=== PATIENT | male | born 1945 | race Caucasian/White ===

== ENCOUNTER 2023-04-09 22:11 | Inpatient (IN) ==
[2023-04-10] MEDS ORDERED: Ondansetron 4 mg VIAL 2 MG/ML 2 ml VIAL IV ONE ×3 (01:45→09:31)
[2023-04-10 02:07] LABS: ABS Basophils 0.1 10^3/uL (0.0-0.1); ABS Lymphocytes 0.6 10^3/uL (1.0-4.8); ABS Monocytes 0.7 10^3/uL (0.0-1.1); ABS Nucleated RBC 0.01 10^3/ul; Eosinophil % 0.1 %; Hemoglobin 16.8 g/dL (13.2-16.3); Lymphocyte % 4.3 %; Mean Corpuscular Hemoglobin 32.3 pg (27-33); Mean Corpuscular Hgb Conc 34.9 g/dL (31-36); Mean Corpuscular Volume 92.4 fL (80-97); Mean Platelet Volume 8.6 fL (7.5-11.2); Nucleated Red Blood Cells % 0.1 /100 WBC (0.0-0.4); Platelet Count 146 10^3/uL (150-450); Red Cell Distribution Width 14.6 % (12-17); White Blood Count 14.4 10^3/uL (3.6-10.2)
[2023-04-10 02:22] LABS: Albumin 4.4 g/dL (3.2-5.2); Albumin/Globulin Ratio 1.5 (1-3); Creatinine, Serum 0.99 mg/dL (0.67-1.17); Potassium 3.7 mmol/L (3.5-5.0); Total Bilirubin 1.4 mg/dL (0.2-1.0); Total Protein 7.4 g/dL (6.4-8.9); eGFR CKD-EPI 79.4 (>60)
[2023-04-10] MEDS ORDERED: Iohexol 350 (CONTRAST) 500 ML MDV IV ONE (04:09)
[2023-04-10] MEDS ORDERED: Morphine 4 MG/ML VIAL (1 ml) IV ONE (06:17)
[2023-04-10 06:19] LABS: Urine Appearance Clear; Urine Bilirubin Negative (Negative); Urine Blood Negative (Negative); Urine Color Yellow; Urine Glucose Negative (Negative); Urine Ketones 1+ (Negative); Urine Nitrite Negative (Negative); Urine Protein 1+(30 mg/dL) (Negative); Urine Specific Gravity 1.024 (1.002-1.030); Urine Urobilinogen Negative (Negative)
[2023-04-10 06:23] LABS: Urine Bacteria Absent (Absent); Urine Red Blood Cell 1+(3-5/hpf) (Absent); Urine White Blood Cell Trace(0-5/hpf) (Absent)
[2023-04-10] MEDS ORDERED: Lactated Ringers 1000 ml BAG 1,000 ML IV ONE (09:31)
[2023-04-10 11:26] LABS: C Reactive Protein 2.2 mg/L (<8.01)
[2023-04-10] MEDS ORDERED: Morphine 2 MG/ML SYRINGE IV PRN ×2 (12:14→21:11)
[2023-04-10] MEDS ORDERED: metroNIDAZOLE IV 500 MG/100ML 500 MG/100 ML BAG IVPB ONE (12:17)
[2023-04-10] MEDS ORDERED: cefTRIAXone 2 GM ADDV.VIAL 2 GM in NS 0.9% 100 ml BAG 100 ML IV ONE (12:17)
[2023-04-10] MEDS: metroNIDAZOLE IV 500 MG/100ML 500 MG/100 ML BAG IVPB SCH ×2 (12:34→21:19)
[2023-04-10] MEDS: Prochlorperazine 5 mg/ml 2 ml VIAL (10 mg) IV PRN (12:37)
[2023-04-10] MEDS: Heparin 5000 UNITS/ML 1 mL VIAL SUBCUT SCH ×2 (13:49→21:15)
[2023-04-10] MEDS: Ondansetron 4 mg VIAL 2 MG/ML 2 ml VIAL IV PRN ×2 (16:00→21:12)
[2023-04-10] MEDS: Lactated Ringers 1000 ml BAG 1,000 ML IV SCH (18:14)
[2023-04-10] MEDS: CMCS:Ticagrelor 60 mg TAB (NF) PO SCH (21:17)
[2023-04-11] MEDS: Lactated Ringers 1000 ml BAG 1,000 ML IV SCH ×2 (04:50→15:37)
[2023-04-11] MEDS: metroNIDAZOLE IV 500 MG/100ML 500 MG/100 ML BAG IVPB SCH ×3 (04:52→21:38)
[2023-04-11] MEDS: Heparin 5000 UNITS/ML 1 mL VIAL SUBCUT SCH ×3 (05:27→21:37)
[2023-04-11 06:49] LABS: ABS Lymphocytes 0.5 10^3/uL (1.0-4.8); ABS Monocytes 1.1 10^3/uL (0.0-1.1); ABS Neutrophils 17.6 10^3/uL (1.5-7.6); ABS Nucleated RBC 0.02 10^3/ul; Hematocrit 44.3 % (38-53); Hemoglobin 15.6 g/dL (13.2-16.3); Lymphocyte % 2.6 %; Mean Corpuscular Hemoglobin 32.5 pg (27-33); Mean Corpuscular Hgb Conc 35.2 g/dL (31-36); Mean Corpuscular Volume 92.3 fL (80-97); Mean Platelet Volume 9.3 fL (7.5-11.2); Nucleated Red Blood Cells % 0.1 /100 WBC (0.0-0.4); Platelet Count 127 10^3/uL (150-450); Red Cell Distribution Width 15.2 % (12-17); White Blood Count 19.2 10^3/uL (3.6-10.2)
[2023-04-11 07:07] LABS: Albumin 3.7 g/dL (3.2-5.2); Albumin/Globulin Ratio 1.4 (1-3); C Reactive Protein 206.11 mg/L (<8.01); Calcium 9.1 mg/dL (8.6-10.3); Creatinine, Serum 0.91 mg/dL (0.67-1.17); Globulin 2.6 g/dL (2-4); Potassium 3.7 mmol/L (3.5-5.0); Total Bilirubin 2.6 mg/dL (0.2-1.0); Total Protein 6.3 g/dL (6.4-8.9); eGFR CKD-EPI 87.9 (>60)
[2023-04-11] MEDS: Prochlorperazine 5 mg/ml 2 ml VIAL (10 mg) IV PRN (08:23)
[2023-04-11] MEDS: CMCS:Ticagrelor 60 mg TAB (NF) PO SCH (09:54)
[2023-04-11] MEDS: cefTRIAXone 2 gm/50 mL D5W 2 GM/50 ML BAG IV SCH (12:52)
[2023-04-12 06:01] LABS: ABS Eosinophils 0.1 10^3/uL (0.0-0.5); ABS Lymphocytes 0.6 10^3/uL (1.0-4.8); ABS Neutrophils 13.9 10^3/uL (1.5-7.6); ABS Nucleated RBC 0.01 10^3/ul; Eosinophil % 0.3 %; Hematocrit 41.1 % (38-53); Hemoglobin 14.5 g/dL (13.2-16.3); Lymphocyte % 4.1 %; Mean Corpuscular Hemoglobin 31.9 pg (27-33); Mean Corpuscular Hgb Conc 35.3 g/dL (31-36); Mean Corpuscular Volume 90.5 fL (80-97); Mean Platelet Volume 8.4 fL (7.5-11.2); Platelet Count 116 10^3/uL (150-450); Red Blood Count 4.55 10^6/uL (4.06-5.63); Red Cell Distribution Width 14.8 % (12-17); White Blood Count 15.7 10^3/uL (3.6-10.2)
[2023-04-12] MEDS: metroNIDAZOLE IV 500 MG/100ML 500 MG/100 ML BAG IVPB SCH ×3 (06:02→20:28)
[2023-04-12 06:23] LABS: Albumin 3.3 g/dL (3.2-5.2); Albumin/Globulin Ratio 1.3 (1-3); Calcium 8.7 mg/dL (8.6-10.3); Creatinine, Serum 0.9 mg/dL (0.67-1.17); Globulin 2.6 g/dL (2-4); Potassium 3.6 mmol/L (3.5-5.0); Total Bilirubin 1.8 mg/dL (0.2-1.0); Total Protein 5.9 g/dL (6.4-8.9); eGFR CKD-EPI 89.1 (>60)
[2023-04-12] MEDS: Heparin 5000 UNITS/ML 1 mL VIAL SUBCUT SCH ×4 (06:38→22:20)
[2023-04-12] MEDS: cefTRIAXone 2 gm/50 mL D5W 2 GM/50 ML BAG IV SCH (12:27)
[2023-04-12] MEDS: Ondansetron 4 mg VIAL 2 MG/ML 2 ml VIAL IV PRN (16:06)
[2023-04-12] MEDS: Lactated Ringers 1000 ml BAG 1,000 ML IV SCH (20:27)
[2023-04-13] MEDS: metroNIDAZOLE IV 500 MG/100ML 500 MG/100 ML BAG IVPB SCH ×2 (04:45→23:51)
[2023-04-13] MEDS ORDERED: Acetaminophen IV 1 GM/100ML 1,000 MG/100 ML BAG IV ONE ×3 (05:30→14:47)
[2023-04-13 06:02] LABS: ABS Lymphocytes 0.1 10^3/uL (1.0-4.8); ABS Monocytes 0.3 10^3/uL (0.0-1.1); ABS Neutrophils 8.1 10^3/uL (1.5-7.6); Eosinophil % 0.3 %; Hematocrit 40.7 % (38-53); Hemoglobin 14.4 g/dL (13.2-16.3); Lymphocyte % 1.7 %; Mean Corpuscular Hemoglobin 31.9 pg (27-33); Mean Corpuscular Hgb Conc 35.5 g/dL (31-36); Mean Corpuscular Volume 89.7 fL (80-97); Mean Platelet Volume 8.7 fL (7.5-11.2); Platelet Count 117 10^3/uL (150-450); Red Blood Count 4.53 10^6/uL (4.06-5.63); Red Cell Distribution Width 14.9 % (12-17); White Blood Count 8.6 10^3/uL (3.6-10.2)
[2023-04-13 06:21] LABS: Albumin 3.2 g/dL (3.2-5.2); Albumin/Globulin Ratio 1.2 (1-3); C Reactive Protein 175.39 mg/L (<8.01); Calcium 8.5 mg/dL (8.6-10.3); Creatinine, Serum 0.93 mg/dL (0.67-1.17); Globulin 2.6 g/dL (2-4); Potassium 3.2 mmol/L (3.5-5.0); Total Bilirubin 1.6 mg/dL (0.2-1.0); Total Protein 5.8 g/dL (6.4-8.9); eGFR CKD-EPI 85.6 (>60)
[2023-04-13] MEDS ORDERED: Lactated Ringers 1000 ml BAG 1,000 ML IV ONE (06:36)
[2023-04-13] MEDS: Lactated Ringers 1000 ml BAG 1,000 ML IV SCH (08:14)
[2023-04-13] MEDS ORDERED: fentaNYL 100 mcg/2 ml 50 MCG/ML VIAL IV PRN ×2 (09:15→11:05)
[2023-04-13] MEDS ORDERED: HYDROmorphone 1 MG/1 ML SYRINGE IV PRN ×2 (09:15→11:05)
[2023-04-13] MEDS ORDERED: Ondansetron 4 mg VIAL 2 MG/ML 2 ml VIAL IV PRN ×2 (09:15→11:05)
[2023-04-13] MEDS ORDERED: Naloxone 0.4 mg VIAL 0.4 mg/ml 1 ml VIAL IV PRN ×2 (09:15→11:05)
[2023-04-13] MEDS ORDERED: Propofol 10 MG/ML 20 ML BTL ONE (10:30)
[2023-04-13] MEDS ORDERED: Ondansetron 4 mg VIAL 2 MG/ML 2 ml VIAL ONE (10:30)
[2023-04-13] MEDS ORDERED: Rocuronium 50 mg VIAL 10 mg/ml 5 ml VIAL (50 mg) ONE (10:30)
[2023-04-13] MEDS ORDERED: fentaNYL 100 mcg/2 ml 50 MCG/ML VIAL ONE (10:30)
[2023-04-13] MEDS ORDERED: Lidocaine 2% PF 5 ML VIAL ONE (10:30)
[2023-04-13] MEDS ORDERED: Dexamethasone IV 4 MG/ML VIAL 1 ml VIAL ONE (10:30)
[2023-04-13] MEDS ORDERED: Midazolam 2 mg/2 ml VIAL 1 mg/ml 2 ml VIAL (2 mg) ONE (10:31)
[2023-04-13] MEDS ORDERED: ceFAZolin 2 GM PREMIX 2 GM/50 ML BAG ONE (11:56)
[2023-04-13] MEDS ORDERED: Bupivacaine 0.25% EPI 200,000 30 ML SDV ONE (12:15)
[2023-04-13 13:01] LABS: ABS Lymphocytes 0.4 10^3/uL (1.0-4.8); ABS Monocytes 0.5 10^3/uL (0.0-1.1); ABS Neutrophils 12.7 10^3/uL (1.5-7.6); Eosinophil % 0.2 %; Hemoglobin 13.8 g/dL (13.2-16.3); Lymphocyte % 2.6 %; Mean Corpuscular Hemoglobin 32.5 pg (27-33); Mean Corpuscular Hgb Conc 35.3 g/dL (31-36); Mean Corpuscular Volume 92.1 fL (80-97); Mean Platelet Volume 8.7 fL (7.5-11.2); Platelet Count 114 10^3/uL (150-450); Red Blood Count 4.24 10^6/uL (4.06-5.63); Red Cell Distribution Width 14.7 % (12-17); White Blood Count 13.6 10^3/uL (3.6-10.2)
[2023-04-13 13:13] LABS: Albumin 3.1 g/dL (3.2-5.2); Calcium 8.4 mg/dL (8.6-10.3); Creatinine, Serum 0.93 mg/dL (0.67-1.17); Potassium 3.3 mmol/L (3.5-5.0); Total Protein 5.7 g/dL (6.4-8.9); eGFR CKD-EPI 85.6 (>60)
[2023-04-13 13:14] LABS: Albumin/Globulin Ratio 1.2 (1-3); Globulin 2.6 g/dL (2-4); Total Bilirubin 1.2 mg/dL (0.2-1.0)
[2023-04-13 14:16] LABS: High Sensitivity Troponin 1 Hr 2216 pg/mL (<20)
[2023-04-13] MEDS ORDERED: Iohexol 350 (CONTRAST) 500 ML MDV IV ONE ×2 (15:20→16:57)
[2023-04-13] MEDS: KCL 20 MEQ/100 ML IVPREMIX 20 MEQ/100 ML BAG IV SCH ×2 (16:36→21:14)
[2023-04-13] MEDS ORDERED: Magnesium Sulfate 2 gm BAG 2 GM/50 ML BAG IVPB ONE (17:36)
[2023-04-13] MEDS ORDERED: cefTRIAXone 2 gm/50 mL D5W 2 GM/50 ML BAG IV SCH (23:00)
[2023-04-14] MEDS: Lactated Ringers 1000 ml BAG 1,000 ML IV SCH (02:59)
[2023-04-14] MEDS: metroNIDAZOLE IV 500 MG/100ML 500 MG/100 ML BAG IVPB SCH ×2 (06:26→07:33)
[2023-04-14 06:38] LABS: Albumin 2.9 g/dL (3.2-5.2); Albumin/Globulin Ratio 1.2 (1-3); Creatinine, Serum 1.03 mg/dL (0.67-1.17); Globulin 2.5 g/dL (2-4); Magnesium 2.1 mg/dL (1.9-2.7); Potassium 3.6 mmol/L (3.5-5.0); Total Bilirubin 0.9 mg/dL (0.2-1.0); Total Protein 5.4 g/dL (6.4-8.9); eGFR CKD-EPI 75.8 (>60)
[2023-04-14 06:47] LABS: ABS Eosinophils 0.1 10^3/uL (0.0-0.5); ABS Lymphocytes 0.5 10^3/uL (1.0-4.8); ABS Monocytes 0.7 10^3/uL (0.0-1.1); ABS Neutrophils 8.8 10^3/uL (1.5-7.6); Eosinophil % 1.2 %; Hematocrit 36.8 % (38-53); Hemoglobin 12.9 g/dL (13.2-16.3); Lymphocyte % 5.4 %; Mean Corpuscular Hgb Conc 35.1 g/dL (31-36); Mean Corpuscular Volume 91.3 fL (80-97); Platelet Count 96 10^3/uL (150-450); Red Blood Count 4.04 10^6/uL (4.06-5.63); Red Cell Distribution Width 14.8 % (12-17); White Blood Count 10.2 10^3/uL (3.6-10.2)
[2023-04-14] MEDS: cefTRIAXone 2 gm/50 mL D5W 2 GM/50 ML BAG IV SCH (07:33)
[2023-04-14] MEDS ORDERED: Regadenoson 0.4 MG/5 ML SYRINGE ONE (09:17)
[2023-04-14] MEDS ORDERED: Aminophylline 25 MG/ML VIAL ONE (09:17)
[2023-04-14 11:52] VITALS: BP 110/56
== END 2023-04-14 14:38 | disposition home or self-care (01) | DRG 445 ==
LOC: EDHOLD 22:11 → ED 22:11 → SUATTDRO 04-10 12:11 → SSU 04-10 17:56 → MEDTELE 04-13 20:46
PROVIDERS: ADMIT Internal Medicine; ATTEND Internal Medicine